=== PATIENT | male | born 1940 | race Caucasian/White ===

== ENCOUNTER 2019-07-22 10:34 | Emergency (ER) | payer MEDICARE ==
[~2019-07-22] VITALS: Ht 177.8 cm; Wt 90.0 kg
[~2019-07-22 10:34] MED LIST: AMLO10TA PO; HCTZ25T PO; LOSA50TA3 PO; OMEP40CA13 PO
[2019-07-22] MEDS ORDERED: ketorolac trometh inj. 60 MG/2 ML VIAL IM ONE (12:25)
[2019-07-22] MEDS ORDERED: NAPR-56 PO (12:29)
[2019-07-22 12:43] VITALS: BP 137/75
[2019-07-23] MEDS ORDERED: ATOR40TA72 PO (11:10)
[2019-07-23] MEDS ORDERED: LISI40TA4 PO (11:10)
== END 2019-07-22 12:48 | disposition home or self-care (01) ==
LOC: ER 10:34
DX: M25.551 Pain in right hip (principal); Z87.891 Personal history of nicotine dependence; Z79.899 Other long term (current) drug therapy
CPT/HCPCS: 73502; 96372; 99284; J1885

== ENCOUNTER 2019-11-14 10:13 | Observation (INO) | payer MEDICARE ==
[~2019-11-14] VITALS: Ht 177.8 cm; Wt 195.0 kg
[~2019-11-14 10:13] MED LIST changes: +ATOR40TA72 PO; -HCTZ25T PO; +LISI40TA4 PO; -LOSA50TA3 PO; +VAL5T PO
[2019-11-14 10:31] LABS: BASOPHILS % (AUTO) 1.1 % (0-1); EOSINOPHILS # (AUTO) 0.2 X10'3 (0-0.9); EOSINOPHILS % (AUTO) 3.7 % (0-6); HEMATOCRIT 33.8 % (42.0-52.0); HEMOGLOBIN 11.2 g/dl (14.0-17.9); LYMPHOCYTES # (AUTO) 1.7 X10'3 (1.1-4.8); LYMPHOCYTES % (AUTO) 39.3 % (21-51); MEAN CORPUSCULAR HEMOGLOBIN 31.3 PG (27.0-31.0); MEAN CORPUSCULAR HGB CONC 33.2 g/dL (33.0-36.5); MEAN CORPUSCULAR VOLUME 94.3 FL (78-98); MEAN PLATELET VOLUME 9.7 FL (7.4-10.4); MONOCYTES # (AUTO) 0.5 X10'3 (0-0.9); NEUTROPHILS # (AUTO) 1.9 X10'3 (1.8-7.7); NEUTROPHILS % (AUTO) 44.9 % (42-75); PLATELET COUNT 173 X10'3 (140-440); RED BLOOD COUNT 3.59 X10'6 (4.70-6.10); RED CELL DISTRIBUTION WIDTH 14.8 % (11.5-14.5); WHITE BLOOD COUNT 4.3 X10'3 (4.5-11.0)
[2019-11-14 10:41] LABS: ALANINE AMINOTRANSFERASE 24 U/L (12-78); ALBUMIN/GLOBULIN RATIO 1.1 (1.1-1.5); ALKALINE PHOSPHATASE 59 IU/L (46-116); ANION GAP 13 (8-16); ASPARTATE AMINO TRANSFERASE 15 U/L (10-37); BILIRUBIN,TOTAL 0.3 MG/DL (0.1-1.0); BLOOD UREA NITROGEN 48 MG/DL (7-18); BUN/CREATININE RATIO 19.7 (5.4-32.0); CALCIUM 8.6 MG/DL (8.5-10.1); CHLORIDE 108 MMOL/L (99-107); CREATININE 2.44 MG/DL (0.60-1.10); GLUCOSE 121 MG/DL (70-104); POTASSIUM 4.3 MMOL/L (3.5-5.1); SODIUM 142 MMOL/L (135-145); TOTAL CARBON DIOXIDE 20.9 MMOL/L (24-32); TOTAL PROTEIN 7.5 G/DL (6.4-8.2); eGFR 26 ML/MIN
--- NOTE | 2019-11-14 11:10 | NUR ---
pt is sitting up in bed, vss, no needs at this time
[2019-11-14] MEDS ORDERED: mag hydrox/Alum hydrox/simeth 30ml oral suspension PO ONE (11:25)
[2019-11-14] MEDS ORDERED: normal saline 1000ML IV soln IVB ONE (12:35)
[2019-11-14] MEDS ORDERED: magnesium 4gm in 100ml NS 100 ML IV PRN (13:30)
[2019-11-14] MEDS ORDERED: potassium Cl 20 mEq SR tablet PO PRN ×2 (13:30)
[2019-11-14] MEDS ORDERED: acetaminophen 325mg tablet PO PRN (13:30)
[2019-11-14] MEDS ORDERED: magnesium Cl slow-release 64mg tablet PO PRN (13:30)
[2019-11-14] MEDS ORDERED: ondansetron/PF 4mg/2ml inj IV PRN (13:30)
[2019-11-14] MEDS ORDERED: magnesium 2GM in 50ml NS 50 ML IV PRN (13:30)
[2019-11-14] MEDS ORDERED: potassium CL 10mEq/100ml bag 100 ML IV PRN ×2 (13:30)
[2019-11-14] MEDS ORDERED: morphine 2 MG/ML inj. syringe IV PRN (13:30)
[2019-11-14] MEDS ORDERED: TRAZ-251 PO (13:47)
[2019-11-14] MEDS ORDERED: HCTZ25T PO (13:47)
[2019-11-14] MEDS ORDERED: GABA-530 PO (13:47)
[2019-11-14] MEDS ORDERED: OMEP-50 PO (13:56)
[2019-11-14] MEDS: HYDROchlorothiazide 12.5mg capsule PO SCH (14:00)
--- NOTE | 2019-11-14 15:28 | NUR ---
Patient in room ED 9. I have received report from Mary CROOK and had the opportunity to ask questions and assume patient care.
[2019-11-14 16:37] VITALS: BP 138/62
--- NOTE | 2019-11-14 17:34 | NUR ---
Paged Doctor PAGER ID: [phone] MESSAGE: [id number] Patient in Room 4009C is requesting to change code status to a DNR
--- NOTE | 2019-11-14 18:15 | NUR ---
Problems reprioritized. Patient report given, questions answered & plan of care reviewed with Eliz CROOK.
--- NOTE | 2019-11-14 18:25 | NUR ---
Patient in room ORTHO 4009. I have received report from Nury CROOK and had the opportunity to ask questions and assume patient care.
--- NOTE | 2019-11-14 18:26 | NUR ---
placed DNR band per MD order
[2019-11-14] MEDS: gabapentin 300mg capsule PO SCH (19:26)
[2019-11-14] MEDS: K and/or MAG REPLACEMENT MC SCH (20:00)
[2019-11-14] MEDS ORDERED: temazepam 15mg capsule PO PRN (21:00)
[2019-11-14] MEDS ORDERED: traZODone 50mg tablet PO SCH (21:00)
[2019-11-14 22:26] VITALS: BP 131/55
[2019-11-14] MEDS ORDERED: nitroGLYCERIN 0.4mg SUBLingual tab SL PRN (23:05)
[2019-11-14] MEDS ORDERED: regadenoson 0.4mg/5ml syringe IV ONE (23:05)
[2019-11-14] MEDS ORDERED: metoprolol tartrate 1mg/ml inj IV PRN (23:05)
[2019-11-14] MEDS ORDERED: aminophylline 250mg/10ml inj. IV PRN (23:05)
[2019-11-15 01:24] VITALS: BP 100/41
[2019-11-15 06:00] VITALS: BP 107/59
[2019-11-15 06:13] LABS: BASOPHILS % (AUTO) 1.4 % (0-1); EOSINOPHILS # (AUTO) 0.2 X10'3 (0-0.9); EOSINOPHILS % (AUTO) 4.8 % (0-6); HEMATOCRIT 28.4 % (42.0-52.0); HEMOGLOBIN 9.7 g/dl (14.0-17.9); LYMPHOCYTES # (AUTO) 0.9 X10'3 (1.1-4.8); LYMPHOCYTES % (AUTO) 27.2 % (21-51); MEAN CORPUSCULAR HEMOGLOBIN 32.2 PG (27.0-31.0); MEAN CORPUSCULAR HGB CONC 34.1 g/dL (33.0-36.5); MEAN CORPUSCULAR VOLUME 94.5 FL (78-98); MEAN PLATELET VOLUME 9.9 FL (7.4-10.4); MONOCYTES # (AUTO) 0.4 X10'3 (0-0.9); MONOCYTES % (AUTO) 12.4 % (2-12); NEUTROPHILS # (AUTO) 1.8 X10'3 (1.8-7.7); NEUTROPHILS % (AUTO) 54.2 % (42-75); PLATELET COUNT 135 X10'3 (140-440); RED BLOOD COUNT 3.01 X10'6 (4.70-6.10); RED CELL DISTRIBUTION WIDTH 14.6 % (11.5-14.5); WHITE BLOOD COUNT 3.2 X10'3 (4.5-11.0)
[2019-11-15 06:15] LABS: ALBUMIN 3.2 G/DL (3.4-5.0); ANION GAP 11 (8-16); BLOOD UREA NITROGEN 35 MG/DL (7-18); CALCIUM 8.6 MG/DL (8.5-10.1); CHLORIDE 107 MMOL/L (99-107); CHOL/HDL RATIO 4.2 (0.00-4.99); CHOLESTEROL 138 MG/DL (0-200); CREATININE 1.75 MG/DL (0.60-1.10); GLUCOSE 106 MG/DL (70-104); HDL CHOLESTEROL 33 MG/DL (35-60); LDL CHOLESTEROL 76 MG/DL (50-100); MAGNESIUM 1.6 MG/DL (1.5-2.4); POTASSIUM 4.7 MMOL/L (3.5-5.1); SODIUM 140 MMOL/L (135-145); TOTAL CARBON DIOXIDE 22.2 MMOL/L (24-32); TRIGLYCERIDES 191 MG/DL (20-135); eGFR 38 ML/MIN
--- NOTE | 2019-11-15 06:33 | NUR ---
Problems reprioritized. Patient report given, questions answered & plan of care reviewed with Nury RN & Kathryn RN.
--- NOTE | 2019-11-15 06:35 | NUR ---
Patient in room ORTHO 4009. I have received report from Eliz CROOK and had the opportunity to ask questions and assume patient care.
[2019-11-15] MEDS ORDERED: atorvastatin 20mg tablet PO SCH (08:00)
[2019-11-15] MEDS ORDERED: pantoprazole 40mg Tablet.DR PO SCH (08:00)
[2019-11-15] MEDS ORDERED: lisinopril 20mg tablet PO SCH (08:00)
[2019-11-15] MEDS: K and/or MAG REPLACEMENT MC SCH (08:00)
[2019-11-15] MEDS ORDERED: amLODIPine 5mg tablet PO SCH (08:00)
--- NOTE | 2019-11-15 08:04 | NUR ---
Update Tameka Titus came to see patient, she feels the patient is not a good candidate to have a lexiscan due to the patient Cr 1.75 and GFR of 38. As well as he is a DNR. The patient would like to go home. Hospitalist was paged.
[2019-11-15] MEDS: gabapentin 300mg capsule PO SCH (08:44)
[2019-11-15] MEDS: HYDROchlorothiazide 12.5mg capsule PO SCH (08:44)
[2019-11-15 10:00] VITALS: BP 103/42
--- NOTE | 2019-11-15 12:38 | NUR ---
Reviewed discharge instructions with patient, he demonstrated understanding. Questions were welcomed and addressed accordingly. Patient was wheeled down stairs to go home in private vehicle and will make own follow up appointment.
--- NOTE | 2019-11-16 11:59 | NUR ---
Case Management DC follow up: LM/VM re post DC status, questions, concerns
== END 2019-11-15 12:40 | disposition home or self-care (01) ==
LOC: ER 10:13 → ED HOLD 13:26 → ORTHO 4S 15:45
PROVIDERS: ADMIT Internal Medicine; ATTEND Internal Medicine
DX: R07.89 Other chest pain (principal); I12.9 Hypertensive chronic kidney disease with stage 1 through stage 4 chronic kidney disease, or unspecified chronic kidney disease; N18.9 Chronic kidney disease, unspecified; E78.5 Hyperlipidemia, unspecified; K21.9 Gastro-esophageal reflux disease without esophagitis; D64.9 Anemia, unspecified; N17.9 Acute kidney failure, unspecified; M19.90 Unspecified osteoarthritis, unspecified site; I49.5 Sick sinus syndrome; Z95.0 Presence of cardiac pacemaker; Z96.652 Presence of left artificial knee joint; Z90.79 Acquired absence of other genital organ(s); Z79.899 Other long term (current) drug therapy
CPT/HCPCS: 36415; 71045; 80048; 80053; 80061; 83735; 83880; 84484; 85025; 87081; 93005; 99285; A9500; G0378; J7030; 99284